=== PATIENT | female | born 1950 | race Caucasian/White ===

== ENCOUNTER 2018-03-14 10:19 | Day surgery (SDC) | payer MEDICARE, OTHER ==
[~2018-03-14] VITALS: Ht 152.4 cm; Wt 70.5 kg
[2018-03-14] MEDS ORDERED: FISH OIL 1,2001 EACH PO (10:56)
[2018-03-14] MEDS ORDERED: Azor 10-20 MG1 EACH (10:57)
[2018-03-14] MEDS ORDERED: CHOL10002 (10:58)
[2018-03-14] MEDS ORDERED: CALCA400CH (10:58)
[2018-03-14] MEDS ORDERED: LEVSOD50 (10:59)
== END 2018-03-14 12:25 | disposition home or self-care (01) ==
LOC: ORSCSDS 10:19
PROVIDERS: Internal Medicine Gastroenterology
PROC: 0DBH8ZX Excision of Cecum, Via Natural or Artificial Opening Endoscopic, Diagnostic (ICD-10-PCS; principal; 2018-03-14 11:30)
PROC: 0DBK8ZX Excision of Ascending Colon, Via Natural or Artificial Opening Endoscopic, Diagnostic (ICD-10-PCS; principal; 2018-03-14 11:30)
PROC: 0DBP8ZX Excision of Rectum, Via Natural or Artificial Opening Endoscopic, Diagnostic (ICD-10-PCS; principal; 2018-03-14 11:30)
DX: Z12.11 Encounter for screening for malignant neoplasm of colon (principal); D12.0 Benign neoplasm of cecum; D12.2 Benign neoplasm of ascending colon; K62.1 Rectal polyp; I10 Essential (primary) hypertension; E03.9 Hypothyroidism, unspecified; Z79.899 Other long term (current) drug therapy
CPT/HCPCS: 88305; J7120

== ENCOUNTER → 2019-04-03 | Outpatient (CLI) | payer MEDICARE, OTHER ==
[~2019-04-03] MED LIST: Azor 10-20 MG1 EACH; CALCA400CH; CHOL10002; FISH OIL 1,2001 EACH PO; LEVSOD50
[2019-04-04 07:05] LABS: Stool Occult Blood Guaiac 1 Neg (Neg)
[2019-04-04 07:06] LABS: Stool Occult Blood Guaiac 2 Neg (Neg)
[2019-04-04 07:07] LABS: Stool Occult Blood Guaiac 3 Neg (Neg)
== END | disposition home or self-care (01) ==
LOC: LAB EV 08:30 → EDSTATUS 15:05
PROVIDERS: Internal Medicine Gastroenterology
DX: Z09 Encounter for follow-up examination after completed treatment for conditions other than malignant neoplasm (principal); Z86.010 Personal history of colon polyps
CPT/HCPCS: 82272

== ENCOUNTER → 2019-08-18 | Outpatient (CLI) | payer MEDICARE, OTHER ==
[~2019-08-18] MED LIST changes: +ACET500 PO; +ALBU2.5V5 NEB; +ALBU90OI INH; +ALLEGRA ALLERG180 MG PO; +AMLO10 PO; +AZELASTINE; +AZIT250 PO; -CHOL10002; +ILEVRO1.7 ML LEFTEYE; +MYRBETRIQ50 MG PO; +OMEP20ER PO; +ROPI1 PO; +SYNTHROID50 MC1 PO; +TUSSIN MUC100 MG/5 M PO; +VITAMIN D31000 UNI1 PO; +[UNRECOGNIZED DRUG - OTHER] PO
== END | disposition home or self-care (01) ==
LOC: LAB EV 09:37 → LAB SHORT 09:37
DX: J06.9 Acute upper respiratory infection, unspecified (principal); Z20.828 Contact with and (suspected) exposure to other viral communicable diseases
CPT/HCPCS: U0003

== ENCOUNTER → 2019-08-20 | Outpatient (CLI) | payer MEDICARE, OTHER ==
[2019-08-20 18:29] LABS: BASOPHILS ABSOLUTE AUTO 0.07 K/mm3 (0.00-0.23); BASOPHILS PERCENT AUTO 1 % (0-2); EOSINOPHILS ABSOLUTE AUTO 0.38 K/mm3 (0.00-0.68); EOSINOPHILS PERCENT AUTO 5 % (0-6); Hematocrit 39.4 % (33.0-51.0); Hemoglobin 13.7 g/dL (11.5-16.0); IMMATURE GRAN ABSOLUTE AUTO 0.03 K/mm3 (0.00-0.10); IMMATURE GRAN PERCENT AUTO 0 % (0-1); LYMPHOCYTES ABSOLUTE AUTO 2.55 K/mm3 (0.84-5.20); LYMPHOCYTES PERCENT AUTO 34 % (21-46); MONOCYTES ABSOLUTE AUTO 0.73 K/mm3 (0.16-1.47); MONOCYTES PERCENT AUTO 10 % (4-13); Mean Corpuscular HGB 30.1 pg (26.0-34.0); Mean Corpuscular HGB Conc 34.8 g/dL (31.5-36.5); Mean Corpuscular Volume 87 fL (80-100); Mean Platelet Volume 9.4 fL (9.1-12.4); NEUTROPHILS ABSOLUTE AUTO 3.71 K/mm3 (1.96-9.15); NEUTROPHILS PERCENT AUTO 50 % (41-73); Platelet Count 344 K/mm3 (150-400); RDW Coefficient Variation 13.3 % (11.7-14.2); RDW Standard Deviation 41.5 fL (35.1-46.3); Red Blood Cell Count 4.55 M/mm3 (3.80-5.20); White Blood Cell Count 7.47 K/mm3 (4.00-11.30)
[2019-08-20 18:47] LABS: Alanine Aminotransfer (ALT/SGP 29 U/L (12-78); Albumin, Blood 4.2 g/dL (3.4-5.0); Albumin/Globulin Ratio 0.8 (0.8-1.8); Alk Phos 62 U/L (40-126); Anion Gap 11 mmol/L (6-16); Aspartate Aminotrans (AST/SGOT 21 U/L (12-37); Bilirubin, Total 0.3 mg/dL (0.1-1.0); Blood Urea Nitrogen 34 mg/dL (8-24); Bun/Creatinine Ratio 27.4 (12.0-20.0); CO2, Blood 27 mmol/L (21-32); Calcium, Blood 9.7 mg/dL (8.5-10.1); Chloride, Blood 101 mmol/L (98-108); Creatinine, Blood 1.24 mg/dL (0.40-1.00); Globulin, Blood 5.1 g/dL (2.2-4.0); Glomerular Filtration Rate 43 (60-); Glucose, Blood 152 mg/dL (70-99); Potassium, Blood 3.6 mmol/L (3.5-5.5); Sodium, Blood 139 mmol/L (136-145); Thyroid Stimulating Hormone 2.198 uIU/mL (0.360-4.800); Total Protein, Blood 9.3 g/dL (6.4-8.2); Troponin I <0.017 ng/mL (0.000-0.040)
== END | disposition home or self-care (01) ==
LOC: LAB SHORT 18:24 → LAB EV 18:24
PROVIDERS: Physician Assistant
DX: R07.9 Chest pain, unspecified (principal); R53.83 Other fatigue; R73.9 Hyperglycemia, unspecified
CPT/HCPCS: 80053; 83036; 84443; 84484; 85025; 85379

== ENCOUNTER → 2020-04-26 | Outpatient (CLI) | payer MEDICARE, OTHER ==
[~2020-04-26] MED LIST changes: +DOXYCYCLINE HY100 M1 PO
[2020-04-26 16:24] LABS: BASOPHILS ABSOLUTE AUTO 0.03 K/mm3 (0.00-0.23); BASOPHILS PERCENT AUTO 0 % (0-2); EOSINOPHILS PERCENT AUTO 0 % (0-6); Hematocrit 34.5 % (33.0-51.0); Hemoglobin 11.8 g/dL (11.5-16.0); IMMATURE GRAN ABSOLUTE AUTO 0.22 K/mm3 (0.00-0.10); IMMATURE GRAN PERCENT AUTO 1 % (0-1); LYMPHOCYTES ABSOLUTE AUTO 0.87 K/mm3 (0.84-5.20); LYMPHOCYTES PERCENT AUTO 5 % (21-46); MONOCYTES ABSOLUTE AUTO 0.82 K/mm3 (0.16-1.47); MONOCYTES PERCENT AUTO 5 % (4-13); Mean Corpuscular HGB 30.7 pg (26.0-34.0); Mean Corpuscular HGB Conc 34.2 g/dL (31.5-36.5); Mean Corpuscular Volume 90 fL (80-100); Mean Platelet Volume 9.6 fL (9.1-12.4); NEUTROPHILS PERCENT AUTO 89 % (41-73); Platelet Count 357 K/mm3 (150-400); RDW Coefficient Variation 14.1 % (11.7-14.2); RDW Standard Deviation 45.9 fL (35.1-46.3); Red Blood Cell Count 3.84 M/mm3 (3.80-5.20); White Blood Cell Count 17.74 K/mm3 (4.00-11.30)
[2020-04-26 16:36] LABS: Alanine Aminotransfer (ALT/SGP 42 U/L (12-78); Albumin, Blood 3.3 g/dL (3.4-5.0); Albumin/Globulin Ratio 0.7 (0.8-1.8); Alk Phos 65 U/L (40-126); Anion Gap 12 mmol/L (6-16); Aspartate Aminotrans (AST/SGOT 14 U/L (12-37); Bilirubin, Total 0.3 mg/dL (0.1-1.0); Blood Urea Nitrogen 26 mg/dL (8-24); Bun/Creatinine Ratio 20.5 (12.0-20.0); CO2, Blood 25 mmol/L (21-32); Calcium, Blood 10.2 mg/dL (8.5-10.1); Chloride, Blood 101 mmol/L (98-108); Creatinine, Blood 1.27 mg/dL (0.40-1.00); Globulin, Blood 4.6 g/dL (2.2-4.0); Glomerular Filtration Rate 42 (60-); Glucose, Blood 278 mg/dL (70-99); Potassium, Blood 3.8 mmol/L (3.5-5.5); Sodium, Blood 138 mmol/L (136-145); Total Protein, Blood 7.9 g/dL (6.4-8.2)
[2020-04-26 16:37] LABS: Troponin I <0.017 ng/mL (0.000-0.040)
== END | disposition home or self-care (01) ==
LOC: LAB EV 16:20 → LAB SHORT 16:20
PROVIDERS: Physician Assistant
DX: R06.02 Shortness of breath (principal); R07.9 Chest pain, unspecified
CPT/HCPCS: 80053; 83880; 84484; 85025; 85379

== ENCOUNTER 2020-05-02 11:00 | Emergency (ER) | payer MEDICARE, OTHER ==
[~2020-05-02] VITALS: Ht 152.4 cm; Wt 73.0 kg
[~2020-05-02 11:00] MED LIST changes: -DOXYCYCLINE HY100 M1 PO
[2020-05-02] MEDS ORDERED: DOXYCYCLINE HY100 M1 PO (11:29)
[2020-05-02 11:50] LABS: BASOPHILS ABSOLUTE AUTO 0.04 K/mm3 (0.00-0.23); BASOPHILS PERCENT AUTO 0 % (0-2); EOSINOPHILS ABSOLUTE AUTO 0.37 K/mm3 (0.00-0.68); EOSINOPHILS PERCENT AUTO 4 % (0-6); Hemoglobin 12.3 g/dL (11.5-16.0); IMMATURE GRAN ABSOLUTE AUTO 0.12 K/mm3 (0.00-0.10); IMMATURE GRAN PERCENT AUTO 1 % (0-1); LYMPHOCYTES ABSOLUTE AUTO 1.09 K/mm3 (0.84-5.20); LYMPHOCYTES PERCENT AUTO 11 % (21-46); MONOCYTES ABSOLUTE AUTO 1.01 K/mm3 (0.16-1.47); MONOCYTES PERCENT AUTO 10 % (4-13); Mean Corpuscular HGB 30.4 pg (26.0-34.0); Mean Corpuscular HGB Conc 33.2 g/dL (31.5-36.5); Mean Corpuscular Volume 92 fL (80-100); Mean Platelet Volume 9.3 fL (9.1-12.4); NEUTROPHILS ABSOLUTE AUTO 7.46 K/mm3 (1.96-9.15); NEUTROPHILS PERCENT AUTO 74 % (41-73); Platelet Count 291 K/mm3 (150-400); RDW Coefficient Variation 14.1 % (11.7-14.2); RDW Standard Deviation 47.5 fL (35.1-46.3); Red Blood Cell Count 4.04 M/mm3 (3.80-5.20); White Blood Cell Count 10.09 K/mm3 (4.00-11.30)
[2020-05-02 12:07] LABS: Alanine Aminotransfer (ALT/SGP 28 U/L (12-78); Albumin, Blood 3.3 g/dL (3.4-5.0); Albumin/Globulin Ratio 0.7 (0.8-1.8); Alk Phos 64 U/L (50-136); Anion Gap 7 mmol/L (6-16); Aspartate Aminotrans (AST/SGOT 14 U/L (12-37); Bilirubin, Total 0.5 mg/dL (0.1-1.0); Blood Urea Nitrogen 15 mg/dL (8-24); Bun/Creatinine Ratio 16.4 (12.0-20.0); CO2, Blood 26 mmol/L (21-32); Calcium, Blood 9.5 mg/dL (8.5-10.1); Chloride, Blood 105 mmol/L (98-108); Creatinine, Blood 0.92 mg/dL (0.40-1.00); Globulin, Blood 4.5 g/dL (2.2-4.0); Glomerular Filtration Rate >60 (60-); Glucose, Blood 113 mg/dL (70-99); Sodium, Blood 138 mmol/L (136-145); Total Protein, Blood 7.8 g/dL (6.4-8.2)
[2020-05-02 12:45] LABS: Influenza A, PCR NEGATIVE (NEGATIVE); Influenza B, PCR NEGATIVE (NEGATIVE); Resp Syncytial Virus, PCR NEGATIVE (NEGATIVE); SARS-Cov-2 (COVID-19) PCR, MMC NEGATIVE (NEGATIVE)
== END 2020-05-02 14:01 | disposition home or self-care (01) ==
LOC: ER 11:00
PROVIDERS: Emergency Medicine
DX: J20.9 Acute bronchitis, unspecified (principal); Z79.899 Other long term (current) drug therapy; Z20.822 Contact with and (suspected) exposure to COVID-19
CPT/HCPCS: 0241U; 36415; 71045; 80053; 85025; 93005; 93010; 94640; 99284-25

== ENCOUNTER 2021-12-25 05:39 | Day surgery (SDC) | payer MEDICARE, OTHER ==
[~2021-12-25] VITALS: Ht 152.4 cm; Wt 76.7 kg
[~2021-12-25 05:39] MED LIST changes: -ALBU90OI INH; +ALBU90OI NEB; +ASPI81CH PO; +ATOR40TA PO; +BENADRYL25 MG PO; +COQ1050 MG PO; +DOXYCYCLINE HY100 M1 PO; +FISH OIL 1,2001 EAC7 PO; +Flonase 0.05% N16 GM; +GABA100 PO; +JARDIANCE10 MG PO; +METF500 PO; +MONT10T PO; +PREG100 PO; +Serevent Disku50 MCG INH; +WIXELA 500-501 EAC1 INH; +ZYRTEC10 M2 PO
--- NOTE | 2021-12-25 07:57 | NUR ---
PT ADMITTED TO DAY SURGERY AND READY FOR PROCEDURE. VERBAL ORDER FROM DR PENA THAT PT CAN TAKE [facility] HOME POST SURGERY IF SHE MEETS THE DISCHARGE CRITERIA. Ambulatory in Day Surgery Surgical site prepped with 2% Chlorhexidine cloth wipe. History, Chart, Medications and Allergies reviewed before start of procedure.Lungs clear T/O to Auscultation. Patient confirms NPO status and agrees with scheduled surgery. Patient reports completing Chlorhexadine shower X2 prior to admission to hospital.
--- NOTE | 2021-12-25 09:16 | NUR ---
Patient up to Ambulate independently. Gait steady. Discharge instructions reviewed with patient. Patient verbalizes understanding. Copy given to patient to take home.PT WILL BE DISCHARGED VIA W/C TO [facility] PER WRITTEN ORDER FROM DR. PNEA. NO COMPLAINTS OF PAIN/NASUEA. NO PAIN RX PER ORDER. DERMABOND REMAINS CDI NO DRAINAGE.
== END 2021-12-25 09:21 | disposition home or self-care (01) ==
LOC: ORSCMMR 05:39 → ORD 07:30 → ORSCMMR 09:21
PROVIDERS: Surgery
PROC: 0JBM0ZX Excision of Left Upper Leg Subcutaneous Tissue and Fascia, Open Approach, Diagnostic (ICD-10-PCS; principal; 2021-12-25 07:30)
DX: D17.24 Benign lipomatous neoplasm of skin and subcutaneous tissue of left leg (principal); I12.9 Hypertensive chronic kidney disease with stage 1 through stage 4 chronic kidney disease, or unspecified chronic kidney disease; E11.22 Type 2 diabetes mellitus with diabetic chronic kidney disease; N18.9 Chronic kidney disease, unspecified; E03.9 Hypothyroidism, unspecified; G47.33 Obstructive sleep apnea (adult) (pediatric); J45.909 Unspecified asthma, uncomplicated; Z79.899 Other long term (current) drug therapy
CPT/HCPCS: 82947; 88304; A9270; J0690; J1100; J2250; J2405; J2704; J2795; J3010; J7120

== ENCOUNTER 2022-01-18 06:43 | Day surgery (SDC) | payer MEDICARE, OTHER ==
[~2022-01-18] VITALS: Ht 152.4 cm; Wt 76.9 kg
[2022-01-18] MEDS ORDERED: LOSA25 (07:00)
[2022-01-18] MEDS ORDERED: EPIPEN0.3 MG/0.3 (07:01)
[2022-01-18] MEDS ORDERED: GABA100 (07:01)
[2022-01-18] MEDS ORDERED: WEGOVY0.5 MG/0.5 (07:16)
--- NOTE | 2022-01-18 08:45 | NUR ---
01/18/22 0845 YULI GARCIA PT UP TO VOID URINE W/ SBA BY RN
== END 2022-01-18 08:45 | disposition home or self-care (01) ==
LOC: ORSCSDS 06:43
PROVIDERS: Student in an Organized Health Care Education/Training Program
PROC: 0DB78ZX Excision of Stomach, Pylorus, Via Natural or Artificial Opening Endoscopic, Diagnostic (ICD-10-PCS; principal; 2022-01-18 08:00)
PROC: 0DB48ZX Excision of Esophagogastric Junction, Via Natural or Artificial Opening Endoscopic, Diagnostic (ICD-10-PCS; principal; 2022-01-18 08:00)
PROC: 0DB58ZX Excision of Esophagus, Via Natural or Artificial Opening Endoscopic, Diagnostic (ICD-10-PCS; principal; 2022-01-18 08:00)
DX: K21.9 Gastro-esophageal reflux disease without esophagitis (principal); I10 Essential (primary) hypertension; G47.33 Obstructive sleep apnea (adult) (pediatric); J45.909 Unspecified asthma, uncomplicated; E78.00 Pure hypercholesterolemia, unspecified; E03.9 Hypothyroidism, unspecified; Z79.84 Long term (current) use of oral hypoglycemic drugs; Z79.899 Other long term (current) drug therapy
CPT/HCPCS: 82947; 88305; 88342; J2704; J7120

== ENCOUNTER → 2022-10-16 | Outpatient (CLI) | payer MEDICARE, OTHER ==
[~2022-10-16] MED LIST changes: +EPIPEN0.3 MG/0.3; +GABA100; +LOSA25; +WEGOVY0.5 MG/0.5
[2022-10-16 16:49] LABS: Protein, Urine Quantitative 7.7 mg/dL (0.0-11.9)
[2022-10-16 16:58] LABS: Microalbumin, Urine Quant. 8.07 mg/L (0.000-20.000)
== END ==
LOC: LAB SHORT 10:00 → LAB 10:00
PROVIDERS: Internal Medicine Nephrology
DX: N18.30 Chronic kidney disease, stage 3 unspecified (principal); D63.1 Anemia in chronic kidney disease; N25.81 Secondary hyperparathyroidism of renal origin; E55.9 Vitamin D deficiency, unspecified; E78.00 Pure hypercholesterolemia, unspecified; R76.9 Abnormal immunological finding in serum, unspecified; R94.5 Abnormal results of liver function studies; R94.6 Abnormal results of thyroid function studies; D51.8 Other vitamin B12 deficiency anemias; D52.8 Other folate deficiency anemias; D50.9 Iron deficiency anemia, unspecified
CPT/HCPCS: 81050; 82043; 84156

== ENCOUNTER 2023-12-04 06:22 | Day surgery (SDC) | payer MEDICARE, OTHER ==
[~2023-12-04] VITALS: Ht 152.4 cm; Wt 75.9 kg
[~2023-12-04 06:22] MED LIST changes: +Albuterol S5 MG/1 ML INH; +DIPHENHYDR12.5 MG/5 PO; +LASIX20 M2 PO; +SPIRIVA RESPIMAT4 G2 INH; +VOLTAREN ARTHRI20 GM TOP
[2023-12-04] MEDS ORDERED: propofoL 20 ML IV ONE (06:53)
[2023-12-04] MEDS ORDERED: FentaNYL Citrate 50 MCG/ML 2 ML Injection ONE (06:53)
[2023-12-04] MEDS ORDERED: ALLERGY INJECTION (07:10)
[2023-12-04] MEDS ORDERED: FOLI1 PO (07:10)
[2023-12-04] MEDS ORDERED: METTREX2.5 PO (07:10)
[2023-12-04] MEDS ORDERED: CALC.25 PO (07:11)
[2023-12-04] MEDS ORDERED: POTA8 PO (07:12)
[2023-12-04] MEDS ORDERED: Lactated Ringer's 1,000 ML IV ONE ×2 (07:19→07:23)
[2023-12-04] MEDS ORDERED: NS 50 ML IV ONE (07:23)
[2023-12-04] MEDS ORDERED: CeFAZolin Sodium 2,000 MG VIAL ONE (07:23)
--- NOTE | 2023-12-04 07:28 | NUR ---
12/04/23 0717 Tracey Li RN IN TO INTERVIEW PT AT [id number]
[2023-12-04] MEDS ORDERED: Ondansetron HCl 2 MG / ML 2ML Vial ONE (07:39)
[2023-12-04] MEDS ORDERED: Ketorolac Tromethamine 30mg Vial ONE (07:39)
[2023-12-04] MEDS ORDERED: Dexamethasone Sod Phos 10 MG/ML 1ML VIAL ONE (07:39)
[2023-12-04] MEDS ORDERED: EPINEPhrine HCl 1 MG/ML 1ML Amp XX ONE (07:54)
[2023-12-04] MEDS ORDERED: Lidocaine 2%-Epineph 1:100000 20 ML MDV INJ ONE (07:55)
[2023-12-04 08:54] VITALS: BP 151/86
[2023-12-04] MEDS ORDERED: OxyCODONE HCL 5 MG TAB ONE (08:54)
--- NOTE | 2023-12-04 09:15 | NUR ---
12/04/23 0915 Jamie Coffman PT VOIDED PRIOR TO D/C.
== END 2023-12-04 09:55 | disposition home or self-care (01) ==
LOC: ORSCSDS 06:22
PROVIDERS: Orthopaedic Surgery
PROC: 0SBC4ZZ Excision of Right Knee Joint, Percutaneous Endoscopic Approach (ICD-10-PCS; principal; 2023-12-04 07:30)
DX: S83.241A Other tear of medial meniscus, current injury, right knee, initial encounter (principal); M94.261 Chondromalacia, right knee; E11.9 Type 2 diabetes mellitus without complications; E78.5 Hyperlipidemia, unspecified; E03.9 Hypothyroidism, unspecified; G47.33 Obstructive sleep apnea (adult) (pediatric); Z79.899 Other long term (current) drug therapy; Z79.82 Long term (current) use of aspirin; Z79.85 Long-term (current) use of injectable non-insulin antidiabetic drugs; I10 Essential (primary) hypertension; Z86.73 Personal history of transient ischemic attack (TIA), and cerebral infarction without residual deficits
CPT/HCPCS: 82947; A9270; J0171; J0690; J1100; J1885; J2405; J2704; J3010; J7120

== ENCOUNTER → 2024-05-13 | Outpatient (CLI) | payer MEDICARE, OTHER ==
[~2024-05-13] MED LIST changes: +ALLERGY INJECTION; +CALC.25 PO; +FOLI1 PO; +METTREX2.5 PO; +POTA8 PO
[2024-05-13 19:10] LABS: BASOPHILS ABSOLUTE AUTO 0.04 K/mm3 (0.00-0.23); BASOPHILS PERCENT AUTO 1 % (0-2); EOSINOPHILS ABSOLUTE AUTO 0.12 K/mm3 (0.00-0.68); EOSINOPHILS PERCENT AUTO 3 % (0-6); Hematocrit 34.9 % (33.0-51.0); Hemoglobin 11.8 g/dL (11.5-16.0); IMMATURE GRAN ABSOLUTE AUTO 0.01 K/mm3 (0.00-0.10); IMMATURE GRAN PERCENT AUTO 0 % (0-1); LYMPHOCYTES ABSOLUTE AUTO 1.74 K/mm3 (0.84-5.20); LYMPHOCYTES PERCENT AUTO 41 % (21-46); MONOCYTES ABSOLUTE AUTO 0.21 K/mm3 (0.16-1.47); MONOCYTES PERCENT AUTO 5 % (4-13); Mean Corpuscular HGB 32.8 pg (26.0-34.0); Mean Corpuscular HGB Conc 33.8 g/dL (31.5-36.5); Mean Corpuscular Volume 97 fL (80-100); NEUTROPHILS ABSOLUTE AUTO 2.17 K/mm3 (1.96-9.15); NEUTROPHILS PERCENT AUTO 51 % (41-73); Platelet Count 294 K/mm3 (150-400); RDW Coefficient Variation 15.6 % (11.7-14.2); RDW Standard Deviation 55.2 fL (35.1-46.3); White Blood Cell Count 4.29 K/mm3 (4.00-11.30)
[2024-05-13 19:26] LABS: Albumin/Globulin Ratio 1.4 (0.8-1.8); Bilirubin, Total 0.6 mg/dL (0.1-1.0); Bun/Creatinine Ratio 23.7 (12.0-20.0); Creatinine, Blood 0.97 mg/dL (0.40-1.00); Globulin, Blood 2.9 g/dL (2.2-4.0); Potassium, Blood 3.8 mmol/L (3.5-5.5); Total Protein, Blood 6.9 g/dL (6.4-8.2)
== END ==
LOC: LAB 16:50 → LAB SHORT 16:50
PROVIDERS: Internal Medicine Rheumatology
DX: M05.9 Rheumatoid arthritis with rheumatoid factor, unspecified (principal)
CPT/HCPCS: 80053; 85025; 85651; 86430

== ENCOUNTER → 2024-10-13 | Outpatient (CLI) | payer MEDICARE, OTHER ==
[2024-10-13 12:03] LABS: Creatinine, Urine Random 36.2 mg/dL (27.00-270.00); Microalb/Creat Ratio UR, Rand 36.74 mg/g (0.000-30.000); Microalbumin, Random Urine 13.3 mg/L (0.000-20.000)
[2024-10-13 12:44] LABS: Ferritin, Serum 31.0 ng/mL (8-252); Total Iron Binding Capacity 321.0 ug/dL (250-450)
== END | disposition home or self-care (01) ==
LOC: LAB SHORT 08:34 → LAB 08:34
PROVIDERS: Family Medicine
DX: E11.9 Type 2 diabetes mellitus without complications (principal); G25.81 Restless legs syndrome
CPT/HCPCS: 36415; 82043; 82570; 82728; 83036; 83540; 83550

== ENCOUNTER 2024-10-20 06:03 | Day surgery (SDC) | payer MEDICARE, OTHER ==
[~2024-10-20] VITALS: Ht 152.4 cm; Wt 68.5 kg
[2024-10-20] VITALS (7 sets, daily range): BP systolic 135–176; BP diastolic 78–92
[~2024-10-20 06:03] MED LIST changes: +AZELASTINE137 MCG/01; +BENADRYL; +LEFL20 PO; +MIRABEGRON ER25 MG PO; +Voltaren100 GM TOP
[2024-10-20] MEDS ORDERED: NS 2,000 ML IV ONE (06:51)
[2024-10-20] MEDS ORDERED: NS 1,000 ML IV ONE (06:53)
[2024-10-20] MEDS ORDERED: Flumazenil 0.1 MG / ML 5ML Vial ONE (06:53)
[2024-10-20] MEDS ORDERED: FentaNYL Citrate 50 MCG/ML 2 ML Injection ONE (06:53)
[2024-10-20] MEDS ORDERED: Midazolam HCl 1MG / ML 2ML Vial ONE (06:53)
[2024-10-20] MEDS ORDERED: Naloxone HCl 0.4MG / ML 1ML Vial ONE (06:53)
[2024-10-20] MEDS ORDERED: HydrALAZINE HCl 20 MG / ML 1ML Vial ONE (08:03)
[2024-10-20] MEDS ORDERED: Labetalol HCL 5 MG/ML 4ML Injection (Single Dose) ONE (08:38)
--- NOTE | 2024-10-20 11:08 | NUR ---
PT UP AND DRESSED, EATING BREAKFAST AT THIS TIME. HAS BEEN UP TO BATHROOM, VOIDING WITHOUT DIFFICULTY.
--- NOTE | 2024-10-20 11:18 | NUR ---
DISCHARGE INSTRUCTIONS GONE OVER WITH PT, VERBALIZES UNDERSTANDING OF INSTRUCTIONS. SALINE LOCK REMOVED WITH CATHETER INTACT. DRESSING APPLIED.
== END 2024-10-20 11:27 | disposition home or self-care (01) ==
LOC: MHTC 06:03 → CT 07:00 → MHTC 11:27
DX: C64.2 Malignant neoplasm of left kidney, except renal pelvis (principal); N28.89 Other specified disorders of kidney and ureter; I10 Essential (primary) hypertension; E78.5 Hyperlipidemia, unspecified; E03.9 Hypothyroidism, unspecified; J45.909 Unspecified asthma, uncomplicated; E11.40 Type 2 diabetes mellitus with diabetic neuropathy, unspecified; Z88.8 Allergy status to other drugs, medicaments and biological substances; Z88.5 Allergy status to narcotic agent; Z79.890 Hormone replacement therapy; Z79.899 Other long term (current) drug therapy
CPT/HCPCS: 77013; J0360; J2250; J2312; J3010; J7030; Q9967